=== PATIENT | female | born 1990 | race Caucasian/White ===

== ENCOUNTER 2017-08-10 12:21 | Emergency (ER) | payer OTHER ==
[~2017-08-10] VITALS: Ht 170.2 cm; Wt 74.8 kg
[2017-08-10 12:23] VITALS: BP 129/85; PULSE 114; TEMP 36.9; O2SAT 100; Ht 170.2 cm; Wt 74.8 kg
[2017-08-10] MEDS ORDERED: AMOX875T PO (13:27)
[2017-08-10] MEDS ORDERED: IBUPROFEN 600 MG TAB PO STA (13:55)
--- NOTE | 2017-08-10 21:36 | EMERGENCY ROOM VISIT NOTE ---
ED Visit Note First contact with patient: 12:53 Chief Complaint: My dog bit my right forearm. History of Present Illness: Ms. Lopez is a 26-year-old white female who ambulates into the ED complaining of a dog bite to the right forearm. Patient reports she was lifting her dog to give him into the car to see a vet, approximately one hour ago, when he bit her right forearm. She feels he has some type of rectal problem because he is been scooting around the floor he's had no signs of infectious disease. She does report his immunizations are up-to-date. Currently she is complaining of a pressure throbbing sensation of the right anterior forearm. She rates her discomfort 6/10. Her pain is nonradiating. Her pain worsens with palpation. She has not identified any alleviating factors related to the pain. She has not taken any medication for pain prior to arrival at the hospital. Associated with her pain she reports she has a tightness sensation in the forearm when she is making a fist. She denies elbow pain, wrist pain, hand pain, arm/hand weakness/numbness/ tingling. Review of Systems: As noted above in history of present illness. Past Medical History: Patient denies. Current Medications: Patient denies. Allergies to Medications: Patient denies. Social History: Patient is currently employed; she feels safe in her home environment; she denies tobacco use and admits to alcohol use. Tetanus Immunization Status: Patient reports up-to-date. Physical Examination: Vital Signs: Date Time Temp Pulse Resp B/P (MAP) Pulse Ox O2 Delivery O2 Flow Rate FiO2 08/10/17 12:23 36.9 114 18 129/85 100 Room Air GENERAL: 26-year-old female in mild distress due to pain, nontoxic-appearing, afebrile and hemodynamically stable. NEUROLOGICAL: Awake, alert and oriented to person, place and time. Answering questions appropriately and following commands. SKIN: Warm, dry and pink. Right Forearm: Patient has 7 small puncture wounds that are also up centimeter in length/diameter. None of the wounds are actively bleeding. 5 of the 7 wounds are full thickness and the other 2 are superficial thickness. There is a small amount of swelling and mild erythema with 3 the puncture wounds but they do not appear infected; skin does not appear cellulitic and they are not warm to touch. I do not appreciate any bruising of the forearm. RIGHT UPPER EXTREMITY: No gross bony deformity. No tenderness throughout the elbow, wrist, hand or fingers. Moderate tenderness throughout the anterior aspect of the forearm. Please note SKIN above for description of soft tissue injury. Patient does have full range of motion in flexion and extension of the elbow, pronation and supination of the forearm and flexion, extension and radial and ulnar deviation of the wrist. 5/5 muscle strength in flexion and extension of the elbow, pronation and supination of forearm, flexion, extension and radial ulnar deviation of the wrist. Throughout the hand the skin was warm and pink and capillary refill is brisk. She was able to distinguish light sensations through all dermatomes of the hand. ED Course: Patient is assessed as noted above. Patient's medication list was reviewed. Patient was initially offered pain medication and refused with and accepted and she received a total of 600 mg of ibuprofen by mouth for pain. Patient's wounds were cleansed with Betadine and irrigation with sterile saline. After which a sterile bacitracin dressing was applied. Patient was educated about today's findings and instructed on her treatment plan ; she verbalized understanding and agreement with this plan. Clinical Impression: Dog bite right forearm. Disposition: Patient discharged home in stable condition; prior to departure she was reassessed and subjectively reported she was feeling better and rated her discomfort 2/10. Plan: Comfort measures were discussed with the patient. Wound care and signs of infection were discussed with the patient. Patient was prescribed Augmentin 875 mg 2 times a day for 7 days for antibiotic prophylaxis. Patient was encouraged to follow-up with family physician for recheck in 4-5 days. Patient was encouraged return ED for worsening/uncontrolled pain, signs of infection, hand weakness/numbness/tingling or any new/concerning symptoms.
== END 2017-08-10 14:06 | disposition home or self-care (01) ==
LOC: C.EDB 12:23 → C.EDD 14:06
DX: S51.851A Open bite of right forearm, initial encounter (principal); W54.0XXA Bitten by dog, initial encounter